=== PATIENT | female | born 1955 ===

== ENCOUNTER 2018-10-12 10:13 | Day surgery (SDC) | payer BC ==
[2018-10-12] VITALS (9 sets, daily range): BP systolic 122–135; BP diastolic 65–75
[~2018-10-12] VITALS: Ht 170.2 cm; Wt 72.6 kg
[2018-10-12] MEDS ORDERED: cholesterol pill PO (10:41)
[2018-10-12] MEDS ORDERED: blood pressure pill PO (10:42)
[2018-10-12] MEDS ORDERED: vit d PO (10:43)
[2018-10-12] MEDS ORDERED: ASPIR 8181 MG ORAL (10:43)
[2018-10-12] MEDS ORDERED: fish oil PO (10:44)
[2018-10-12] MEDS ORDERED: Lidocaine 1% MPF 10mg/ml 5ml ONE (12:00)
[2018-10-12] MEDS ORDERED: Propofol 200mg/20ml IV ONE (12:00)
--- NOTE | 2018-10-12 12:10 | Pre-Procedure Note/Attestation ---
Pre-Procedure Note/Attestation Complete Prior to Procedure Planned Procedure: not applicable Procedure Narrative: esophagogastroduodenoscopy and colonoscopy Indications for Procedure Pre-Operative Diagnosis: screening colonoscopy stool ob positive Attestation I attest that I discussed the nature of the procedure; its benefits; risks and complications; and alternatives (and the risks and benefits of such alternatives ), prior to the procedure, with the patient (or the patient's legal veterans contact representative). I attest that, if there was a reasonable possibility of needing a blood transfusion, the patient (or the patient's legal veterans contact representative) was given the [facility] standardized written summary, pursuant to the [place] Blood Safety Act ([place] Health and Safety Code # 1645, as amended). I attest that I re-evaluated the patient just prior to the surgery and that there has been no change in the patient's H&P, except as documented below: Ashwin Sibley MD Oct 12, 2018 12:10
--- NOTE | 2018-10-12 12:12 | Short Stay Surgery H&P ---
History of Present Illness History of Present Illness Chief Complaint positive stool ob HPI Kay La is a 63 year old female who was admitted on for Rectal Bleed , Abdominal Pain Medication History Scheduled Aspirin* (Aspir 81*), 81 MG ORAL DAILY, (Reported) [blood pressure pill], 1 TAB PO DAILY, (Reported) [cholesterol pill], 1 TAB PO HS, (Reported) [fish oil], 1 TAB-CAP PO DAILY, (Reported) [vit d], 1 TAB PO DAILY, (Reported) Review of Systems Cardiovascular: Reports: no symptoms Respiratory: Reports: no symptoms Skeletal: Reports: no symptoms Gastrointestinal: Reports: no symptoms Genitourinary: Reports: no symptoms Neurologic: Reports: no symptoms Endocrine: Reports: no symptoms Physical Exam Vital Signs Last Vital Signs Date Time Temp Pulse Resp B/P (MAP) Pulse Ox O2 Delivery O2 Flow Rate FiO2 10/12/18 10:57 98.5 68 18 122/71 98 Room Air Skin: normal HENT: normal Heart: normal Lungs: normal Abdomen: normal Extremities: normal Plan Plan of Care esophagogastroduodenoscopy and colonoscopy Attestation Are the patient's medical conditions optimized for surgery? Attestation Response: yes Ashwin Sibley MD Oct 12, 2018 12:12
--- NOTE | 2018-10-12 12:43 | Endoscopy Procedure Note ---
Endoscopy Procedure Note General Indication for Procedure: screening colon, GERD Procedures Performed: EGD, colonoscopy Operative Findings/Diagnosis: gastritis, diverticulosis Specimen: yes Pt Tolerated Procedure Well: Yes Estimated Blood Loss: none Anesthesia Anesthesiologist: tim Anesthesia: MAC Inserted Devices Implant(s) used?: No Quality Quality of Bowel Preparation: Good Did scope reach the cecum?: Yes Was there any complications?: No GI Core Measures 50 yrs or older w/o bx or poly: No 10yrs. F/U not recommended: Yes If not recommended, why?: Above average risk 10 yrs. F/U needed: Yes 18 years or older w/prev. colo: No Ashwin Sibley MD Oct 12, 2018 12:43
[2018-10-12] MEDS ORDERED: Atropine Inj 1mg/10ml Syr IV PRN (13:00)
[2018-10-12] MEDS ORDERED: DiphenhydrAMINE 50mg/ml Inj IVP PRN (13:00)
[2018-10-12] MEDS ORDERED: Midazolam 2mg/2ml Inj IVP PRN (13:00)
[2018-10-12] MEDS ORDERED: fentaNYL 100 mcg/2 mL IV PRN (13:00)
--- NOTE | 2018-10-12 13:01 | Anethesia Preoperative Eval ---
Anesthesia Pre-op PMH/ROS General Date of Evaluation: Oct 12, 2018 Time of Evaluation: 12:01 Anesthesiologist: tim ASA Score: ASA 3 Mallampati Score Class I : Soft palate, uvula, fauces, pillars visible Class II: Soft palate, uvula, fauces visible Class III: Soft palate, base of uvula visible Class IV: Only hard plate visible Mallampati Classification: Class II Surgeon: víctor Diagnosis: gerd, rectal bleed Surgical Procedure: egd/colonoscopy Anesthesia History: none Social History: smoking Family History: no anesthesia problems Allergies: Coded Allergies: LEVOFLOXACIN (Verified Allergy, Unknown, 10/12/18) Medications: see eMAR Patient NPO?: Yes Past Medical History Gastrointestinal/Genitourinary: Reports: GERD, other - esophagitis, rectal bleed, Anesthesia Pre-op Phys. Exam Physician Exam Last Vital Signs Date Time Temp Pulse Resp B/P (MAP) Pulse Ox O2 Delivery O2 Flow Rate FiO2 10/12/18 10:57 98.5 68 18 122/71 98 Room Air Constitutional: NAD Neurologic: CN 2-12 intact Cardiovascular: RRR Respiratory: CTA Gastrointestinal: S/NT/ND Airway Exam Mallampati Score: Class II MO: limited Neck: flexible TMD: 2fb ROM: limited Anesthesia Pre-op A/P Risk Assessment & Plan Assessment: asa3 Plan: mac Status Change Before Surgery: No Pre-Antibiotics Drug: Florecita Adams MD Oct 12, 2018 13:00
--- NOTE | 2018-10-12 13:03 | Immediate Post-Op Evaluation ---
Immediate Post-Op Evalulation Immediate Post-Op Evalulation Procedure: egd/colonoscopy/bx Date of Evaluation: Oct 12, 2018 Time of Evaluation: 13:03 Blood Products: 600ml 0.9ns Estimated Blood Loss: negligible Blood Pressure Systolic: 123 Blood Pressure Diastolic: 75 Pulse Rate: 66 Respiratory Rate: 18 O2 Sat by Pulse Oximetry: 99 Temperature (Fahrenheit): 97.5 Pain Score (1-10): 0 Nausea: No Vomiting: No Complications none Patient Status: awake, reacts, patent Hydration Status: adequate Drug: Florecita Adams MD Oct 12, 2018 13:03
--- NOTE | 2018-10-12 15:42 | 48 Hour Post Anesthesia Eval ---
Post Anesthesia Evaluation Procedure: egd/colonoscopy/bx Date of Evaluation: Oct 12, 2018 Time of Evaluation: 13:05 Blood Pressure Systolic: 135 0: 65 Pulse Rate: 66 Respiratory Rate: 18 Temperature (Fahrenheit): 97.5 O2 Sat by Pulse Oximetry: 99 Airway: patent Nausea: No Vomiting: No Pain Intensity: 0 Hydration Status: adequate Cardiopulmonary Status: stable Mental Status/LOC: patient returned to baseline Post-Anesthesia Complications: none Follow-up care needed: N/A Florecita Drummond MD Oct 12, 2018 15:42
--- NOTE | 2018-10-12 18:15 | Procedure Note ---
DATE OF PROCEDURE: 10/12/2018 SURGEON: Ashwin Sibley M.D. PROCEDURE: Upper endoscopy with biopsy and colonoscopy. ANESTHESIA: Per Dr. Hu. INSTRUMENT: Olympus adult flexible upper endoscope and colonoscope. INDICATION: 1. Stool OB positive. 2. Screening colonoscopy evaluation. The procedure, risks, benefits, and possible consequences, including hemorrhage, aspiration, perforation and infection, and alternative treatments, were explained to the patient/legal guardian by Dr. Ashwin Sibley and the patient/legal guardian understood and accepted these risks. DESCRIPTION OF PROCEDURE: After informed consent was obtained and the patient was adequately sedated, Olympus upper endoscope was advanced from the mouth to the second portion of duodenum and retroflexion was performed in the stomach The patient has evidence of minimal distal esophagitis. Biopsy from distal esophagus was obtained. In the stomach, there was diffuse gastritis. Biopsy from antrum and body was obtained to rule out H. pylori infection. The patient had multiple erosions in the prepyloric region. No evidence of any ulcerations. There were multiple erosions. In the duodenal bulb, there was a scar from prior duodenal ulcerations. No obvious duodenal ulcer at this time. The patient on the way back had a small inlet patch seen below the upper esophagus sphincter. At this time, the upper endoscope was retrieved. The patient was turned over for colonoscopy. First, rectal exam was performed which was positive for external hemorrhoids. Then, the scope was advanced from the rectum into the cecum documented by appendiceal orifice, ileocecal valve, and right upper quadrant palpation. Quality of prep was very good. The patient had evidence of diverticulosis scattered throughout the colon. No obvious mas,s polyp, or any pathology was seen. Retroflexion of rectum showed evidence of internal hemorrhoids. SUMMARY OF FINDINGS: 1. Inlet patch. 2. Esophagitis status post biopsy. 3. Gastritis, status post biopsy. 4. Multiple antral erosions. 5. Prior history of most probably duodenal ulceration with scar in the duodenum. 6. Internal and external hemorrhoids. 7. Diverticulosis. RECOMMENDATIONS: 1. Follow up biopsy results and treat accordingly. 2. The patient to to be on PPI daily. 3. Repeat colonoscopy in 5 years. Ashwin Camacho Sibley DR: Arturo JOB#: [id number] CC:
--- NOTE | 2018-10-14 15:09 | Cardiology Report ---
APPROVED REPORT EKG Measurement Heart [id number] CT 118P7 [id number] Normal sinus rhythm Normal ECG
== END 2018-10-12 13:50 | disposition home or self-care (01) ==
LOC: GAS 10:13
DX: Z12.11 Encounter for screening for malignant neoplasm of colon (principal); K57.30 Diverticulosis of large intestine without perforation or abscess without bleeding; K64.4 Residual hemorrhoidal skin tags; R19.5 Other fecal abnormalities; K29.70 Gastritis, unspecified, without bleeding; B96.81 Helicobacter pylori [H. pylori] as the cause of diseases classified elsewhere; K20.9 Esophagitis, unspecified; K25.9 Gastric ulcer, unspecified as acute or chronic, without hemorrhage or perforation; K21.9 Gastro-esophageal reflux disease without esophagitis; I10 Essential (primary) hypertension; Z88.1 Allergy status to other antibiotic agents; Z79.82 Long term (current) use of aspirin
CPT/HCPCS: 43239; 45378; 93005; J2704; 94003; 94150